=== PATIENT | female | born 2005 | race Caucasian/White ===

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

== ENCOUNTER 2023-08-15 08:26 | Emergency (ER) | payer OTHER ==
[~2023-08-15] VITALS: Ht 157.5 cm; Wt 56.8 kg
[~2023-08-15 08:26] MED LIST: ISOT30CA14 PO
[2023-08-15 08:32] VITALS: TEMP 98.5
[2023-08-15] MEDS ORDERED: IBUP-1506 PO (09:15)
[2023-08-15] MEDS ORDERED: AMOX500C2 PO (09:15)
[2023-08-15 09:20] VITALS: BP 110/70; PULSE 65; RESP 15
== END 2023-08-15 09:31 | disposition home or self-care (01) ==
LOC: EMS 08:49
DX: H66.91 Otitis media, unspecified, right ear (principal)
CPT/HCPCS: 99283; Z7502

== ENCOUNTER 2024-09-03 00:52 | Emergency (ER) | payer OTHER ==
[~2024-09-03] VITALS: Ht 157.5 cm; Wt 57.3 kg
[~2024-09-03 00:52] MED LIST changes: +AMOX500C2 PO; +IBUP-1506 PO; -ISOT30CA14 PO
[2024-09-03 01:49] VITALS: TEMP 98.6
[2024-09-03 02:40] VITALS: BP 108/60; PULSE 129; RESP 18; O2SAT 98
[2024-09-03 02:47] LABS: BASOPHILS % (AUTO) 0.5 % (0.0-2.0); EOSINOPHILS % (AUTO) 0.1 % (1.0-6.0); HEMATOCRIT 37.3 % (36-46); HEMOGLOBIN 12.5 g/dL (12.0-16.0); LYMPHOCYTES # (AUTO) 0.3 K/uL (1.0-4.8); MEAN CORPUSCULAR HEMOGLOBIN 29.7 pg (26.0-34.0); MEAN CORPUSCULAR HGB CONC 33.5 G/dL (31.0-37.0); MEAN CORPUSCULAR VOLUME 89 fL (80-100); MONOCYTES # (AUTO) 0.5 K/uL (0.1-1.0); NEUTROPHILS # (AUTO) 14.4 K/uL (1.8-7.7); PLATELET COUNT (AUTO) 264 K/uL (150-450); WHITE BLOOD COUNT (AUTO) 15.3 K/uL (4.5-11.0)
[2024-09-03 02:49] LABS: ANION GAP 10 mmol/L (8-16); CALCIUM, TOTAL 8.3 mg/dL (8.8-10.5); CARBON DIOXIDE 27 mmol/L (22-29); CHLORIDE 102 mmol/L (98-107); CREATININE 0.66 mg/dL (0.60-1.30); GLOMERULAR FILTR. RATE CALC > 60 mL/min (>60); GLUCOSE,RANDOM 138 mg/dL (70-110); POTASSIUM 3.6 mmol/L (3.5-5.1); SODIUM SERUM 139 mmol/L (136-145); UREA NITROGEN, BLOOD 11 mg/dL (7-18)
[2024-09-03 02:50] LABS: NEUTROPHILS % (AUTO) 94.4 % (40.0-70.0)
[2024-09-03 02:57] LABS: APPEARANCE,URINE HAZY (CLEAR); BILIRUBIN,URINE NEGATIVE (NEGATIVE); COLOR,URINE YELLOW (YELLOW); GLUCOSE, URINE (UA) NEGATIVE (NEGATIVE); KETONES,URINE 40-60 mg/dL (NEGATIVE); LEUKOCYTE ESTERASE ,URINE SMALL (NEGATIVE); NITRATE,URINE NEGATIVE (NEGATIVE); OCCULT BLOOD,URINE LARGE (NEGATIVE); PROTEIN,URINE 30-70 mg/dL (NEGATIVE); SPECIFIC GRAVITIY, URINE 1.031 (1.003-1.030); UROBILINOGEN,URINE <=1.0 mg/dL (<=1.0)
[2024-09-03 03:00] LABS: ALANINE AMINOTRANSFERASE 15 U/L (12-78); ALBUMIN 3.4 g/dL (3.4-5.0); ALKALINE PHOSPHATASE 74 U/L (46-116); ASPARTATE AMINOTRANSFERASE 16 U/L (15-37); BILIRUBIN,TOTAL 0.9 mg/dL (0.1-1.0); HCG,QUANTITATIVE 1 mIU/mL (0-6); LIPASE 38 U/L (16-77); TOTAL PROTEIN, SERUM 7.1 g/dL (6.4-8.2)
[2024-09-03] MEDS: KETOROLAC TROMETHAMINE 30 MG/ML VIAL IVP ONE (03:01)
[2024-09-03] MEDS: ONDANSETRON HCL 4 MG/2 ML VIAL IVP ONE (03:01)
[2024-09-03] MEDS: SODIUM CHLORIDE 0.9% 1,000 ML IV ONE (03:02)
[2024-09-03 03:07] LABS: BACTERIA,URINE Few /HPF (None Seen); SQUAMOUS EPITHELIAL CELL,UR Few /LPF (None Seen)
[2024-09-03 04:02] LABS: COVID AG,FIA SOURCE NASAL SWAB
[2024-09-03 04:39] LABS: SARS-COV2 (COVID) ANTIGEN,FIA Negative (Negative)
[2024-09-03 04:40] LABS: INFLUENZA TYPE A NEGATIVE FOR TYPE A (NEGATIVE); INFLUENZA TYPE B NEGATIVE FOR TYPE B (NEGATIVE)
[2024-09-03] MEDS: PROMETHAZINE HCL 25 MG TABLET PO ONE (05:57)
[2024-09-03] MEDS ORDERED: ONDA-104 PO (06:26)
== END 2024-09-03 06:53 | disposition home or self-care (01) ==
LOC: EMS 00:52
DX: K52.9 Noninfective gastroenteritis and colitis, unspecified (principal); R11.2 Nausea with vomiting, unspecified; Z20.822 Contact with and (suspected) exposure to COVID-19
CPT/HCPCS: 99284; 96374; 96361; 96375; 87426; 80048; 80076; 81001; 83690; 84702; 85025; 87804; 36415; J1885; J2405; J7030

== ENCOUNTER 2025-02-15 22:10 | Emergency (ER) | payer OTHER ==
[~2025-02-15] VITALS: Ht 157.5 cm; Wt 55.9 kg
[~2025-02-15 22:10] MED LIST changes: +ONDA-104 PO
[2025-02-15 22:14] VITALS: TEMP 98.8
[2025-02-15] MEDS ORDERED: KETOROLAC TROMETHAMINE 30 MG/ML VIAL IVP ONE (22:30)
[2025-02-15 22:42] LABS: BASOPHILS % (AUTO) 0.5 % (0.0-2.0); EOSINOPHILS % (AUTO) 1.2 % (1.0-6.0); HEMATOCRIT 36.5 % (36-46); HEMOGLOBIN 12.2 g/dL (12.0-16.0); LYMPHOCYTES # (AUTO) 2.5 K/uL (1.0-4.8); LYMPHOCYTES % (AUTO) 25.2 % (22.0-44.0); MEAN CORPUSCULAR HEMOGLOBIN 29.3 pg (26.0-34.0); MEAN CORPUSCULAR HGB CONC 33.4 G/dL (31.0-37.0); MEAN CORPUSCULAR VOLUME 88 fL (80-100); MONOCYTES # (AUTO) 0.7 K/uL (0.1-1.0); MONOCYTES % (AUTO) 6.8 % (2.0-9.0); NEUTROPHILS # (AUTO) 6.6 K/uL (1.8-7.7); NEUTROPHILS % (AUTO) 66.3 % (40.0-70.0); PLATELET COUNT (AUTO) 296 K/uL (150-450); RED BLOOD CELL COUNT(AUTO) 4.16 MIL/uL (4.00-5.20); WHITE BLOOD COUNT (AUTO) 9.9 K/uL (4.5-11.0)
[2025-02-15 22:49] LABS: ANION GAP 6 mmol/L (8-16); CALCIUM, TOTAL 9.1 mg/dL (8.8-10.5); CARBON DIOXIDE 28 mmol/L (22-29); CHLORIDE 103 mmol/L (98-107); CREATININE 0.53 mg/dL (0.60-1.30); GLOMERULAR FILTR. RATE CALC > 60 mL/min (>60); GLUCOSE,RANDOM 92 mg/dL (70-110); POTASSIUM 4.1 mmol/L (3.5-5.1); SODIUM SERUM 137 mmol/L (136-145); UREA NITROGEN, BLOOD 12 mg/dL (7-18)
[2025-02-15] MEDS: ACETAMINOPHEN 500 MG TABLET PO ONE (23:16)
[2025-02-15] MEDS: METOCLOPRAMIDE HCL 5 MG/ML 2 ML VIAL IVP ONE (23:16)
[2025-02-15] MEDS: KETOROLAC TROMETHAMINE 15 MG/ML VIAL IVP ONE (23:17)
[2025-02-15] MEDS: DiphenhydrAMINE HCL 50 MG/ML VIAL IVP ONE (23:17)
[2025-02-15] MEDS: SODIUM CHLORIDE 0.9% 1,000 ML IV ONE (23:17)
[2025-02-16] MEDS: DEXAMETHASONE SOD PHOS 4 MG/ML VIAL IVP ONE (00:58)
[2025-02-16] MEDS: MAGNESIUM SULFATE 1 GM in DEXTROSE 5%-WATER 50 ML IV ONE (00:58)
[2025-02-16] MEDS: MECLIZINE HCL 25 MG TABLET PO ONE (03:14)
[2025-02-16 03:24] VITALS: BP 90/50; PULSE 91; RESP 14; O2SAT 96
[2025-02-16] MEDS ORDERED: MECL-302 PO (04:06)
== END 2025-02-16 04:37 | disposition home or self-care (01) ==
LOC: EMS 22:17
DX: G43.109 Migraine with aura, not intractable, without status migrainosus (principal); Z98.890 Other specified postprocedural states; Z79.899 Other long term (current) drug therapy
CPT/HCPCS: 99284; 96365; 96375; 96361; 96366; 80048; 84703; 85025; 36415; J1885; J1200; J2765; J7030; J1100; J7060; J3475

== ENCOUNTER → 2025-05-18 | Outpatient (CLI) | payer OTHER ==
[~2025-05-18] MED LIST changes: +MECL-302 PO
== END | disposition home or self-care (01) ==
LOC: RADMN 13:46
PROVIDERS: ATTEND Family Medicine
DX: G43.909 Migraine, unspecified, not intractable, without status migrainosus (principal)
CPT/HCPCS: 70551